=== PATIENT | female | born 1965 | race Caucasian/White ===

== ENCOUNTER → 2018-07-06 14:20 | Outpatient (CLI) | payer OTHER, SELFPAY | PROVIDERS: Visit Provider Obstetrics & Gynecology | DX: R10.10 Upper abdominal pain, unspecified (principal) | CPT/HCPCS: 87086; 87088 ==

== ENCOUNTER 2023-04-26 11:00 | Outpatient (RCR) | payer OTHER, SELFPAY ==
--- NOTE | 2023-03-17 13:04 | HP.PTEVAL ---
Patient's Visit Information Visit Information Visit Information: LEAH QUISPE is a 57 year old F referred to Physical Therapy by Dr. Gordon Luna DO with a diagnosis of spinal stenosis and spondylosis with radic Lumbar. Date of Evaluation: 03/17/23 Physical Therapist: DARSHAN Chapin Visit Plan Frequency: 2x /Week Duration: 2 Months Plan: 2X/ week for 8 weeks for AT for neutral spine core stability, deep water hang, LE strength with HEP HEP: seated piriformis stretch Subjective Subjective: Pt has back pain and when she goes to bed It bothers her if she sits more than 10 min she has to shift because of the pain. When she goes to sleep she is ok and then all of the sudden she gets a contraction in her back and it feels like she has a Diego horse in her back until she shifts and then she feels no pain and then it starts all over again. This has been going on since October 2020. She went to an ortho Dr cause she had hip pain. She was told that that had arthritis on her L hip but told her that it was her back. They put her in a traction machine and then she started with back pain but the hip pain left for a couple of weeks. She had more control over her bladder as well for a couple of weeks. She is having issues with urgency and leaking with coughing. She is seeing pain management with some med a little over Advil and that is helping a little bit. Dr did an x-ray. The Dr wants an MRI but not sure when that will be. Pain Back pain: Pain Intensity (Out of 10): 2 L hip pain: Pain Intensity (Out of 10): 0 Objective Objective: Gait: walks with decrease stride length Trunk AROM: flex 100%, ext 75%, SB 75%B, Rot B 75% B LE MMT: R hip flex 19.2 and L 19.5 R knee ext 22.9 and L 25.1 R knee flex 15.5 and L 15.9 R hip abd 13.1 and 16.5 bridge: pt is able to do 3/4 normal ROM bridge piriformis length: pt is tighter on the L and pain with end range stretching Negative SLR Balance/Special Test Scores Oswestry Low Back Score: 13 Goals Goal 1:: I HEP Goal Time Frame: 6-8 Weeks Goal 2:: Decrease overall back pain and be able to sit greater than 10 min without having to weight shift. Goal Time Frame: 6-8 Weeks Goal 3:: Increase LE strength (at time of the eval: LE MMT: R hip flex 19.2 and L 19.5 R knee ext 22.9 and L 25.1 R knee flex 15.5 and L 15.9 R hip abd 13.1 and 16.5). Goal Time Frame: 6-8 Weeks Goal 4:: Pt to be able to stretch L piriformis with good muscle length and no pain Goal Time Frame: 6-8 Weeks Rehabilitation Potential Rehabilitation Potential: Good Anticipated Interventions Patient/Client Instruction: Educate patient on: Condition and Plan of Care For the Purpose of:: To decrease pain, To increase ROM, To improve nutrient delivery to tissue, To improve muscle performance and motor function, To improve ability to perform ADL's, To increase tolerance to activity/condition/position, To improve performance and independence with ADL's, To decrease level of supervision to perform tasks, To decrease soft tissue restriction and To increase flexibility/ROM Therapeutic Exercise to Include: Strength training, Postural training, Flexibilty training, Neuromotor development, In an aquatic setting , Active ROM and Dynamic Lumbar Stabilization For the Purpose of:: To decrease pain, To increase ROM, To improve nutrient delivery to tissue, To improve muscle performance and motor function, To improve ability to perform ADL's, To increase tolerance to activity/condition/position, To improve performance and independence with ADL's, To improve ability of physical actions for home/community/work/leisure, To improve gait and locomotor functions, To improve health of tissue, To increase flexibility/ROM and To improve endurance Text: Thank you for the opportunity to evaluate your patient. For Medicare and Medicare HMO plans, please review the plan of care and approve it. It will need to be FAXED BACK to us at [phone] for Medicare purposes. For Medicare only, by signing this I certify the plan of care. Please let me know if there are questions or concerns regarding this plan of care. Physician Signature: Date:
--- NOTE | 2023-04-19 11:37 | HP.PTREVAL ---
Re-Evaluation Intro: Dr. Gordon Luna, DO, It has been my pleasure to treat LEAH QUISPE over the last 9 visits for spinal stenosis and spondylosis with radic Lumbar. Please see the progress note below for an update on the physical therapy plan of care! Subjective Subjective: She felt good in the pool. The pain is shifting. She has no pain currently. Last night she did feels some tingling which was the first time she had it. She had a hard time sleeping on the R side so she slept on the L. She still feels the overall heaviness and feels she needs strength. Objective Objective/Function: MMT: R hip flex 19.2 and L 19.5 R knee ext 22.9 and L 25.1 R knee flex 15.5 and L 15.9 R hip abd 13.1 and 16.5). L piriformis has more flexibility and no pain with stretching Plan Plan Plan: 2 additional visits for HEP for neutral spine core stability and LE strength Balance/Gait/Functional tests Balance/Special Test Scores Oswestry Low Back Score: 10 Goals Goals Goal 1:: I HEP Goal Time Frame: 6-8 Weeks Goal 2:: Decrease overall back pain and be able to sit greater than 10 min without having to weight shift. Goal Time Frame: 6-8 Weeks Goal Progress: Progressing Goal 3:: Increase LE strength (at time of the eval: LE MMT: R hip flex 19.2 and L 19.5 ( no improvement) R knee ext 26.5 and L 28.8 R knee flex 17.6 and L 18.2 R hip abd 16.3 and 17.7 Goal Time Frame: 6-8 Weeks Goal Progress: Progressing Goal 4:: Pt to be able to stretch L piriformis with good muscle length and no pain Goal Time Frame: 6-8 Weeks Anticipated Interventions Anticipated Interventions Patient/Client Instruction: Educate patient on: Condition and Plan of Care For the Purpose of:: To decrease pain, To increase ROM, To improve nutrient delivery to tissue, To improve muscle performance and motor function, To improve ability to perform ADL's, To increase tolerance to activity/condition/position, To improve performance and independence with ADL's, To decrease level of supervision to perform tasks, To decrease soft tissue restriction and To increase flexibility/ROM Therapeutic Exercise to Include: Strength training, Postural training, Flexibilty training, Neuromotor development, In an aquatic setting , Active ROM and Dynamic Lumbar Stabilization For the Purpose of:: To decrease pain, To increase ROM, To improve nutrient delivery to tissue, To improve muscle performance and motor function, To improve ability to perform ADL's, To increase tolerance to activity/condition/position, To improve performance and independence with ADL's, To improve ability of physical actions for home/community/work/leisure, To improve gait and locomotor functions, To improve health of tissue, To increase flexibility/ROM and To improve endurance Re-Evaluation Ending Re-evaluation ending: Please do not hesitate to contact me at [phone] by phone or if you have questions or concerns regarding this new plan of care! Sincerely, Kisha Francois MPT
--- NOTE | 2023-07-18 07:38 | HP.PT.NRP(2) ---
Patient Information Patient Information: LEAH QUISPE was seen in my office for initial evaluation on . The following Plan of Care was established for this patient: Last Seen Last Seen: This patient was last seen in our office . Pertinent comments regarding their Physical therapy will appear below: At this point I will be discontinuing this patient from physical therapy. I would be happy to see this patient again in the future if found appropriate by the physician. Thank you! Kisha Francois, MPT
== END 2023-04-26 19:00 | disposition home or self-care (01) ==
LOC: PT 11:00
PROVIDERS: PCP Preventive Medicine Occupational Medicine; Referring Provider Orthopaedic Surgery; Visit Provider Orthopaedic Surgery
DX: M48.061 Spinal stenosis, lumbar region without neurogenic claudication (principal); M47.26 Other spondylosis with radiculopathy, lumbar region
CPT/HCPCS: 97110; 97113; 97161; 97530

== ENCOUNTER → 2025-05-05 | Outpatient (CLI) | payer OTHER, SELFPAY ==
[2025-05-05 15:08] LABS: Free T3 3.0 pg/mL (2.18-3.98)
== END | disposition home or self-care (01) ==
PROVIDERS: Referring Provider Internal Medicine Endocrinology, Diabetes & Metabolism; Visit Provider Internal Medicine Endocrinology, Diabetes & Metabolism
DX: E05.90 Thyrotoxicosis, unspecified without thyrotoxic crisis or storm (principal)
CPT/HCPCS: 36415; 84439; 84443; 84481; 86376